=== PATIENT | female | born 1965 | race American Indian/Alaskan Native ===

== ENCOUNTER 2020-12-19 17:12 | Emergency (ER) | payer SELFPAY ==
--- NOTE | 2020-12-19 17:47 | Event Note ---
ED Screening Note Date of service: 12/19/20 Time: 17:43 ED Screening Note: This initial assessment/diagnostic orders/clinical plan/treatment(s) is/are subject to change based on patients health status, clinical progression and re- assessment by fellow clinical providers in the ED. Further treatment and workup at subsequent clinical providers discretion. Patient/guardian urged not to elope from the ED as their condition may be serious if not clinically assessed and managed. Initial orders include: 55-year-old female who is a poor historian, states that she was in [facility] in [place] last week where she was in cardiac arrest she was released from the hospital and is now with her daughter in [place] . She complained of fluid leaking from her right groin area x4 days On examination it appears that there was a previous catheter in her right groin area and she is leaking clear fluid possible urine from that site. She denies fever cough chest pain shortness of breath. PMH of Diabetes.
[2020-12-19 19:01] LABS: Hematocrit 30.8 % (30.3-42.9); Mean Corpuscular HGB Conc 33 % (30-34); Mean Corpuscular Volume 93 fl (79-97); Platelet Count 337 K/mm3 (140-440); Red Cell Distribution Width 17.4 % (13.2-15.2)
[2020-12-19 19:10] LABS: Alanine Aminotransferase 33 units/L (7-56); Albumin 3.1 g/dL (3.9-5); Blood Urea Nitrogen 4 mg/dL (7-17); Hemolysis Index 90
[2020-12-19 19:14] LABS: BUN/Creatinine Ratio 7
[2020-12-19] MEDS ORDERED: INSULIN REGULAR, HUMAN 100 UNITS/1 ML IV ONE (21:05)
[2020-12-19] MEDS ORDERED: SODIUM CHLORIDE 0.9% 1000 ML 1,000 ML IV ONE (21:13)
[2020-12-19] MEDS ORDERED: fentaNYL 100 MCG/2 ML INJ IV ONE (21:13)
--- NOTE | 2020-12-19 21:19 | Emergency Department Report ---
HPI - General Chief Complaint: Medical Clearance Time Seen by Provider: 12/19/20 20:53 - HPI HPI: This is a 55-year-old -[place] female presents to the emergency department with complaint of a 4-day history of right groin pain and drainage of fluid from the right groin. The patient was visiting her daughter in [place] when she went into cardiac arrest. At some point during her stay she had a right-sided femoral catheter that I believed to be a CVC. She has been having the symptoms since the CVC was removed. The drainage of fluid has been mostly clear but occasionally it is blood-tinged. She has a past medical history of diabetes, hypertension, coronary artery disease. She has taken [id number] medications without any relief. She denies any fever, swelling of the groin or leg, skin color change, rash or lesions. ED Past Medical Hx - Past Medical History Previous Medical History?: Yes Hx Hypertension: Yes Hx Diabetes: Yes Additional medical history: CAD - Surgical History Past Surgical History?: No - Social History Smoking Status: Current Every Day Smoker Substance Use Type: Alcohol - Medications Home Medications: Home Medications Medication Instructions Recorded Confirmed Last Taken Type HYDROcodone/APAP 5-325 [[place] 1 each PO Q6HR PRN #10 tablet 12/20/20 Unknown Rx 5/325] ED Review of Systems ROS: Stated complaint: LEAKING FROM THE THIGH AREA Other details as noted in HPI Comment: All other systems reviewed and negative Constitutional: denies: chills, fever Eyes: denies: eye pain, vision change ENT: denies: ear pain, throat pain Respiratory: denies: cough, shortness of breath Cardiovascular: denies: chest pain, palpitations Gastrointestinal: denies: abdominal pain, vomiting Genitourinary: denies: dysuria, discharge Musculoskeletal: arthralgia, myalgia Skin: other (Clear drainage from the right groin). denies: rash Neurological: denies: weakness, numbness, paresthesias Physical Exam - Physical Exam Vital Signs: Vital Signs 12/19/20 17:44 Temperature 99.6 F Pulse Rate 109 H Respiratory 20 Rate Blood Pressure 105/62 O2 Sat by Pulse 99 Oximetry Physical Exam: GENERAL: The patient is well-developed well-nourished. HENT: Normocephalic. Atraumatic. Patient has moist mucous membranes. EYES: Extraocular motions are intact. NECK: Supple. Trachea is midline. CHEST/LUNGS: Clear to auscultation. There is no respiratory distress noted. HEART/CARDIOVASCULAR: Regular. There is no tachycardia. There is no murmur. ABDOMEN: Abdomen is soft, nontender. Patient has normal bowel sounds. SKIN: Skin is warm and dry. There is a small punctate opening to the right groin that has very mild serous drainage. No overlying erythema. NEURO: The patient is awake, alert, and oriented. The patient is cooperative. The patient has no focal neurologic deficits. Normal speech. MUSCULOSKELETAL: There is no tenderness or deformity. There is no limitation range of motion. There is no evidence of acute injury. There is a palpable right femoral pulse. Tenderness to palpation of the right groin. ED Course Vital Signs 12/19/20 17:44 Temperature 99.6 F Pulse Rate 109 H Respiratory 20 Rate Blood Pressure 105/62 O2 Sat by Pulse 99 Oximetry ED Medical Decision Making - Lab Data Result diagrams: 12/19/20 18:21 12/19/20 18:21 Lab Results 12/19/20 12/19/20 12/19/20 Range/Units 18:21 18:21 23:20 WBC 6.8 (4.5-11.0) K/mm3 RBC 3.30 L (3.65-5.03) M/mm3 Hgb 10.0 L (10.1-14.3) gm/dl Hct 30.8 (30.3-42.9) % MCV 93 (79-97) fl MCH 30 (28-32) pg MCHC 33 (30-34) % RDW 17.4 H (13.2-15.2) % Plt Count 337 (140-440) K/mm3 Sodium 143 (137-145) mmol/L Potassium 3.9 (3.6-5.0) mmol/L Chloride 109.2 H (98-107) mmol/L Carbon Dioxide 23 (22-30) mmol/L Anion Gap 15 mmol/L BUN 4 L (7-17) mg/dL Creatinine 0.6 (0.6-1.2) mg/dL Estimated GFR > 60 ml/min BUN/Creatinine Ratio 7 % Glucose 371 H (65-100) mg/dL POC Glucose 54 L (70-105) mg/dL Calcium 8.0 L (8.4-10.2) mg/dL Total Bilirubin 0.20 (0.1-1.2) mg/dL AST 39 (5-40) units/L ALT 33 (7-56) units/L Alkaline Phosphatase 223 H (35-129) units/L Total Protein 5.8 L (6.3-8.2) g/dL Albumin 3.1 L (3.9-5) g/dL Albumin/Globulin Ratio 1.1 % - Radiology Data Radiology results: report reviewed CT PELVIS WITH IV CONTRAST INDICATION / CLINICAL INFORMATION: Right groin pain and drainage s/p CVC. TECHNIQUE: Axial CT images were obtained through the pelvis after IV contrast. All CT scans at this location are performed using CT dose reduction for ALARA by means of automated exposure control. COMPARISON: None available. FINDINGS: BOWEL: No significant abnormality. APPENDIX: No significant abnormality. PERITONEUM: No free fluid. No free air. No fluid collection. LYMPH NODES: No significant adenopathy. ARTERIES: No significant abnormality. VEINS: No significant abnormality. URINARY BLADDER: No significant abnormality. REPRODUCTIVE ORGANS: No significant abnormality. ADDITIONAL FINDINGS: There is mild subcutaneous inflammatory change in the right groin at the site of recent catheterization. No soft tissue fluid collection or significant hematoma is identified. SKELETAL SYSTEM: No significant abnormality. IMPRESSION: 1. Mild subcutaneous inflammatory change in the right groin without fluid collection or hematoma. - Medical Decision Making This patient presents to the emergency department with a complaint of right- sided groin pain with some drainage of fluid over the past 1 week. Based on the patient's history and descriptions, it sounds like the patient had a femoral vein central venous catheter when she was admitted to the ICU in [place] after she had cardiac arrest. On examination she has some tenderness to palpation of the right groin. There is a palpable right femoral artery. There is a very small superficial opening in the skin of the right groin with a very small amount of clear or serous drainage seen. No overlying erythema. No current bl eeding. No purulent discharge. Patient had a CT scan of the pelvis with IV contrast that did not show any fluid collection, abscess, induration, or any other acute process. Patient's labs were mostly unremarkable except for some hyperglycemia with a blood sugar of 370. There is no elevation in her anion gap and this does not appear consistent with diabetic ketoacidosis. Patient was given a small amount of IV fluid resuscitation and a dose of IV insulin. Her blood sugar was rechecked about 1.5 hours later and she had some borderline hypoglycemia with a blood sugar of 57. The patient was given some orange juice and later a snack bag. The repeat blood sugar was up to 90. Vital signs have been reassuring throughout her ED course. She appears safe for discharge home at this time. I told the patient to eat another snack when she goes home and to check her blood sugar. As long she does not have significant hypoglycemia in the morning, she can go back to her normal diabetes management. The patient will clean the area with soap and water and then attempt to keep it dry. Patient has been instructed to follow-up with her primary care physician. We discussed signs and symptoms of infection for which she will need to be seen immediately including increased pain, swelling, surro unding erythema, development of fever or purulent discharge. Critical Care Time: No Critical care attestation.: If time is entered above; I have spent that time in minutes in the direct care of this critically ill patient, excluding procedure time. ED Disposition Clinical Impression: Right groin pain, Labile blood glucose Disposition: DC- TO HOME OR SELFCARE Is pt being admited?: No Condition: Stable Instructions: Hyperglycemia Additional Instructions: Please follow-up with your primary care physician in the next few days. Starting in the morning, please make sure to check your blood sugar and if it is not too low then continue with your normal insulin treatment. Clean your right groin, where you are having the drainage, with soap and water and then try to make sure it remains dry. Please make sure you are seen immediately with any signs/symptoms of infection such as increased pain, swelling, surrounding redness, development of fever, discharge of pus, or with any acute distress. You have been prescribed a medication that is sedating and therefore should not be taken prior to driving, working, and responsible for children and in no way should be mixed with alcohol of any quantity. Return to the emergency department with any worsening of your symptoms, new or concerning symptoms not addressed during this current emergency department visit, or with any acute distress. Prescriptions: HYDROcodone/APAP 5-325 [[place] 5/325] 1 each PO Q6HR PRN #10 tablet PRN Reason: Pain Referrals: PRIMARY CARE, [Primary Care Provider] - 2-3 Days Time of Disposition: 00:46
--- NOTE | 2020-12-19 22:29 | Cat Scan Report ---
CT PELVIS WITH IV CONTRAST INDICATION / CLINICAL INFORMATION: Right groin pain and drainage s/p CVC. TECHNIQUE: Axial CT images were obtained through the pelvis after IV contrast. All CT scans at this location are performed using CT dose reduction for ALARA by means of automated exposure control. COMPARISON: None available. FINDINGS: BOWEL: No significant abnormality. APPENDIX: No significant abnormality. PERITONEUM: No free fluid. No free air. No fluid collection. LYMPH NODES: No significant adenopathy. ARTERIES: No significant abnormality. VEINS: No significant abnormality. URINARY BLADDER: No significant abnormality. REPRODUCTIVE ORGANS: No significant abnormality. ADDITIONAL FINDINGS: There is mild subcutaneous inflammatory change in the right groin at the site of recent catheterization. No soft tissue fluid collection or significant hematoma is identified. SKELETAL SYSTEM: No significant abnormality. IMPRESSION: 1. Mild subcutaneous inflammatory change in the right groin without fluid collection or hematoma. Signer Name: Jarrod Bear MD Signed: 12/19/2020 10:25 PM Workstation Name: [id number]
[2020-12-20] MEDS: DEXTROSE 50% IN WATER (25GM) 50 ML SYRINGE IV ONE ×2 (00:37→00:44)
[2020-12-20 01:26] VITALS: BP 153/63
== END 2020-12-20 01:20 | disposition home or self-care (01) ==
LOC: ED 17:12
DX: R10.31 Right lower quadrant pain (principal); I10 Essential (primary) hypertension; E11.65 Type 2 diabetes mellitus with hyperglycemia; I25.10 Atherosclerotic heart disease of native coronary artery without angina pectoris; F17.200 Nicotine dependence, unspecified, uncomplicated; Z79.899 Other long term (current) drug therapy
CPT/HCPCS: 36415; 72193; 80053; 82962; 85027; 96361; 96374; 96375; 99284; J3010; J7030; Q9967; J1815

== ENCOUNTER 2021-01-01 09:23 | Emergency (ER) | payer BC, MEDICAID ==
--- NOTE | 2021-01-01 09:36 | Event Note ---
ED Screening Note ED Screening Note: ruq abd pain n/v etoh This initial assessment/diagnostic orders/clinical plan/treatment(s) is/are subject to change based on patients health status, clinical progression and re- assessment by fellow clinical providers in the ED. Further treatment and workup at subsequent clinical providers discretion. Patient/guardian urged not to elope from the ED as their condition may be serious if not clinically assessed and managed. Initial orders include: labs ua
[2021-01-01 09:37] VITALS: BP 156/91
[2021-01-01 11:15] LABS: Alanine Aminotransferase 93 units/L (7-56); Albumin 3.3 g/dL (3.9-5); Blood Urea Nitrogen 6 mg/dL (7-17); Calcium 8.6 mg/dL (8.4-10.2); Hemolysis Index 82
[2021-01-01 11:25] LABS: BUN/Creatinine Ratio 12; Bilirubin,Direct < 0.2 mg/dL (0-0.2)
[2021-01-01 11:53] LABS: Basophils # (Auto) 0.1 K/mm3 (0.0-0.1); Basophils % (Auto) 1.2 % (0.0-1.8); Eosinophils # (Auto) 0.1 K/mm3 (0.0-0.4); Eosinophils % (Auto) 1.3 % (0.0-4.3); Hematocrit 33.6 % (30.3-42.9); Hemoglobin 10.7 gm/dl (10.1-14.3); Lymphocytes # (Auto) 1.6 K/mm3 (1.2-5.4); Lymphocytes % (Auto) 37.2 % (13.4-35.0); Mean Corpuscular HGB Conc 32 % (30-34); Mean Corpuscular Volume 90 fl (79-97); Monocytes # (Auto) 0.5 K/mm3 (0.0-0.8); Monocytes % (Auto) 10.4 % (0.0-7.3); Platelet Count 251 K/mm3 (140-440); Red Blood Count 3.74 M/mm3 (3.65-5.03); Red Cell Distribution Width 17.4 % (13.2-15.2)
[2021-01-01 12:04] LABS: INR 0.96 (0.87-1.13)
[2021-01-01] MEDS ORDERED: SODIUM CHLORIDE 0.9% 1000 ML 1,000 ML IV ONE (12:12)
--- NOTE | 2021-01-01 13:38 | Emergency Department Report ---
<NILAY COLMENARES A - Last Filed: 01/01/21 13:42> ED Abdominal Pain HPI - General Chief Complaint: Abdominal Pain Stated Complaint: LIVER PAIN PUI?: No Time Seen by Provider: 01/01/21 09:35 Source: patient Mode of arrival: Ambulatory Limitations: No Limitations - History of Present Illness Initial Comments: Patient is an ill-appearing 55-year-old female. Well-nourished. Admits to alcohol use. She comes to the ER with right upper quadrant pain. Patient initially seen in triage labs ordered. Abnormal labs were noted. Patient was moved to [facility] for additional work-up. MD Complaint: abdominal pain -: Gradual, days(s) Location: RUQ Migration to: no migration Severity: moderate Severity scale (0 -10): 8 Quality: cramping Consistency: constant Improves With: nothing Worsens With: nothing Associated Symptoms: nausea, vomiting. denies: diarrhea - Related Data Previous Rx's Medication Instructions Recorded Last Taken Type HYDROcodone/APAP 5-325 [[place] 1 each PO Q6HR PRN #10 tablet 12/20/20 Unknown Rx 5/325] Allergies Allergy/AdvReac Type Severity Reaction Status Date / Time No Known Allergies Allergy Unverified 12/19/20 17:20 ED Review of Systems Comment: All other systems reviewed and negative ED Past Medical Hx - Past Medical History Previous Medical History?: Yes Hx Hypertension: Yes Hx Diabetes: Yes Hx Liver Disease: Yes Additional medical history: CAD - Surgical History Past Surgical History?: No - Family History Family history: no significant - Social History Smoking Status: Current Every Day Smoker Substance Use Type: Alcohol - Medications Home Medications: Home Medications Medication Instructions Recorded Confirmed Last Taken Type HYDROcodone/APAP 5-325 [[place] 1 each PO Q6HR PRN #10 tablet 12/20/20 Unknown Rx 5/325] ED Physical Exam - General Limitations: No Limitations General appearance: alert - Head Head exam: Present: atraumatic, normocephalic - Eye Eye exam: Present: normal appearance - ENT ENT exam: Present: mucous membranes moist - Neck Neck exam: Present: normal inspection - Respiratory Respiratory exam: Present: normal lung sounds bilaterally. Absent: respiratory distress - Cardiovascular Cardiovascular Exam: Present: regular rate, normal rhythm. Absent: systolic murmur, diastolic murmur, rubs, gallop - GI/Abdominal GI/Abdominal exam: Present: soft, tenderness, normal bowel sounds - Extremities Exam Extremities exam: Present: normal inspection - Back Exam Back exam: Present: normal inspection - Neurological Exam Neurological exam: Present: alert, oriented X3 - Psychiatric Psychiatric exam: Present: normal affect, normal mood - Skin Skin exam: Present: warm, dry, intact, normal color. Absent: rash ED Medical Decision Making - Lab Data Result diagrams: 01/01/21 11:24 01/01/21 09:50 - Medical Decision Making Labs 01/01/21 01/01/21 01/01/21 09:50 09:50 11:24 WBC 4.3 L RBC 3.74 Hgb 10.7 Hct 33.6 MCV 90 MCH 29 MCHC 32 RDW 17.4 H Plt Count 251 Lymph % (Auto) 37.2 H [place] % (Auto) 10.4 H Eos % (Auto) 1.3 Baso % (Auto) 1.2 Lymph # (Auto) 1.6 [place] # (Auto) 0.5 Eos # (Auto) 0.1 Baso # (Auto) 0.1 Seg Neutrophils % 49.9 Seg Neutrophils # 2.2 PT INR Sodium 138 Potassium 4.5 Chloride 102.6 Carbon Dioxide 22 Anion Gap 18 BUN 6 L Creatinine 0.5 L Estimated GFR > 60 BUN/Creatinine Ratio 12 Glucose 263 H Calcium 8.6 Total Bilirubin 0.30 Direct Bilirubin < 0.2 Indirect Bilirubin 0.1 AST 150 H ALT 93 H Alkaline Phosphatase 326 H Total Protein 6.2 L Albumin 3.3 L Albumin/Globulin Ratio 1.1 Lipase 9 L HCG, Quant 5.96 H 01/01/21 11:24 WBC RBC Hgb Hct MCV MCH MCHC RDW Plt Count Lymph % (Auto) [place] % (Auto) Eos % (Auto) Baso % (Auto) Lymph # (Auto) [place] # (Auto) Eos # (Auto) Baso # (Auto) Seg Neutrophils % Seg Neutrophils # PT 13.3 INR 0.96 Sodium Potassium Chloride Carbon Dioxide Anion Gap BUN Creatinine Estimated GFR BUN/Creatinine Ratio Glucose Calcium Total Bilirubin Direct Bilirubin Indirect Bilirubin AST ALT Alkaline Phosphatase Total Protein Albumin Albumin/Globulin Ratio Lipase HCG, Quant Vital Signs (72 hours) 01/01/21 09:35 Temperature 98.7 F Pulse Rate 83 Respiratory 18 Rate Blood Pressure 156/91 [Right] O2 Sat by Pulse 100 Oximetry Abnormal labs noted. Additional work-up ordered. 1330 pt was in room 38 She stated she was tired of waiting and she walked out of ER - per RN - Differential Diagnosis Rule out pancreatitis, rule out cholecystitis, UTI, kidney stone, [place] ED Disposition Clinical Impression: Abdominal pain Disposition: Z-07 PAT REG,NO TRIAGE Is pt being admited?: No Does the pt Need Aspirin: No Condition: Undetermined Instructions: Abdominal Pain (ED) Referrals: PRIMARY CARE, [Primary Care Provider] - 3-5 Days Time of Disposition: 13:40 <CHIQUITA LOMAS - Last Filed: 01/01/21 14:56> ED Review of Systems ROS: Stated complaint: LIVER PAIN Other details as noted in HPI ED Course Vital Signs 01/01/21 09:35 Temperature 98.7 F Pulse Rate 83 Respiratory 18 Rate Blood Pressure 156/91 [Right] O2 Sat by Pulse 100 Oximetry ED Medical Decision Making - Lab Data Result diagrams: 01/01/21 11:24 01/01/21 09:50 Critical care attestation.: If time is entered above; I have spent that time in minutes in the direct care of this critically ill patient, excluding procedure time. ED Disposition Is pt being admited?: No Does the pt Need Aspirin: No
== END 2021-01-01 13:25 | disposition left against medical advice (07) ==
LOC: ED 09:23
DX: K76.9 Liver disease, unspecified (principal); Z53.21 Procedure and treatment not carried out due to patient leaving prior to being seen by health care provider
CPT/HCPCS: 36415; 80048; 80076; 83690; 84702; 85025; 85610